=== PATIENT | female | born 1990 | race Caucasian/White ===

== ENCOUNTER 2018-10-06 16:43 | Emergency (ER) | payer SELFPAY ==
[~2018-10-06] VITALS: Ht 157.5 cm; Wt 63.5 kg
--- OUTSIDE RECORDS SUMMARY | 2018-10-06 16:52 | XMS REPORT | Clinical Summary ---
Author Author [facility] Organization [facility] Address Unknown Phone Unavailable Care Team Providers Care Heel Gummer Name Role Phone Asked, No Pcp PCP Unavailable Allergies Comments Active Allergy Reactions Severity Noted Date Penicillins Anaphylaxis High 02/18/2018 Medications End Date Status Medication Sig Dispensed Refills Start Date 02/28/2018 ciprofloxacin (CIPRO) 500 Take 1 tablet 20 tablet 0 MG tablet (500 mg 8 total) by mouth 2 (two) times a day for 10 days. 02/23/2018 acetaminophen-codeine Take 1 tablet 15 tablet 0 (TYLENOL WITH CODEINE #3) by mouth 8 300-30 mg per tablet every 6 (six) hours as needed for moderate pain for up to 5 days. 02/23/2018 promethazine (PHENERGAN) Take 1 tablet 20 tablet 0 25 MG tablet (25 mg total) 8 by mouth every 6 (six) hours as needed for nausea or vomiting for up to 5 days. Active Problems Not on file Encounters Care Team Description Date Type Specialty Tanvir Sharma MD Pyelonephritis (Primary Dx); Flank pain 02/18/2018 Emergency Emergency Medicine after 10/05/2017 Social History Date Tobacco Use Types Packs/Day Years Used Never Assessed Sex Assigned at Date Recorded Not on file Industry Job Start Date Occupation Not on file Not on file Not on file Travel End Travel History Travel Start No recent travel history available. Last Filed Vital Signs Time Taken Vital Sign Reading 02/18/2018 1:14 PM CDT Blood Pressure 101/58 02/18/2018 1:14 PM CDT Pulse 96 02/18/2018 9:47 AM CDT Temperature 36.9 C (98.4 F) 02/18/2018 1:14 PM CDT Respiratory Rate 18 02/18/2018 1:14 PM CDT Oxygen Saturation 99% - Inhaled Oxygen - Concentration 02/18/2018 6:44 AM CDT Weight 61.2 kg (135 lb) 02/18/2018 6:44 AM CDT Height 157.5 cm (5' 2") 02/18/2018 6:44 AM CDT Body Mass Index 24.69 Plan of Treatment Health Maintenance Due Date Last Done Comments CERVICAL CANCER SCREENING 2012 INFLUENZA VACCINE 01/29/2019 Procedures Comments Procedure Name Priority Date/Time Associated Diagnosis US GALLBLADDER STAT 02/18/2018 10:56 AM CDT LACTIC ACID LEVEL, SEPSIS Timed 02/18/2018 - NOW AND REPEAT 2X EVERY 10:04 AM CDT [address] ABDOMEN PELVIS W STAT 02/18/2018 CONTRAST 8:32 AM CDT LIPASE LEVEL STAT 02/18/2018 6:55 AM CDT ZZESTIMATED GFR STAT 02/18/2018 6:55 AM CDT COMPREHENSIVE METABOLIC STAT 02/18/2018 PANEL 6:55 AM CDT HC COMPLETE BLD COUNT STAT 02/18/2018 W/AUTO DIFF 6:55 AM CDT LACTIC ACID LEVEL, SEPSIS Timed 02/18/2018 - NOW AND REPEAT 2X EVERY 6:52 AM CDT 3 HOURS HCG QUALITATIVE, URINE STAT 02/18/2018 SCREEN 6:52 AM CDT URINALYSIS SCREEN AND STAT 02/18/2018 MICROSCOPY, WITH REFLEX 6:52 AM CDT TO CULTURE GRAM STAIN STAT 02/18/2018 6:52 AM CDT URINE CULTURE STAT 02/18/2018 6:52 AM CDT after 10/05/2017 Results * US Gallbladder (02/18/2018 10:56 AM CDT) Narrative Performed At EXAMINATION:US GALLBLADDER [facility] CLINICAL HISTORY:ruq pain TECHNIQUE: Sonographic imaging over the right upper quadrant with attention to gallbladder was performed. COMPARISON:None. IMPRESSION: 1.The gallbladder is normal. There are no gallstones. No pericholecystic fluid or sonographic Ibrahim's sign was elicited. 2.The common bile duct is normal in caliber and measures 2.8 mm. 3.The main portal vein is patent with a diameter of 0.9 cm. There is normal hepatopedal directional flow within the main portal vein. SUMMARY: Normal gallbladder ultrasound. [facility]-[id number] Procedure Note Interface, Radiology Results Incoming - 02/18/2018 11:01 AM CDT EXAMINATION: US GALLBLADDER CLINICAL HISTORY: ruq pain TECHNIQUE: Sonographic imaging over the right upper quadrant with attention to gallbladder was performed. COMPARISON: None. IMPRESSION: 1. The gallbladder is normal. There are no gallstones. No pericholecystic fluid or sonographic Ibrahim's sign was elicited. 2. The common bile duct is normal in caliber and measures 2.8 mm. 3. The main portal vein is patent with a diameter of 0.9 cm. There is normal hepatopedal directional flow within the main portal vein. SUMMARY: Normal gallbladder ultrasound. [facility]-[id number] Performing Organization Address City/State/Zipcode Phone Number [facility] [address] [place] [address] * Lactic acid level, SEPSIS - Now and repeat 2x every 3 hours (02/18/2018 10:04 AM CDT) Only the most recent of 2 results within the time period is included. Lactic acid 1.0 0.5 - 2.2 mmol/L [facility] AND GENOMIC MEDICINE Specimen Blood Performing Organization Address City/State/Zipcode Phone Number [facility] [address] [address] PATHOLOGY AND GENOMIC MEDICINE * CT Abdomen Pelvis W Contrast (02/18/2018 8:32 AM CDT) Narrative Performed At CT scan abdomen and pelvis. 02/18/2018 [facility] Clinical history: Abdominal infection Technique: Routine protocol CT abdomen and pelvis performed after 75 mL Omnipaque 300 intravenous contrast. No enteric contrast was administered.Coronal, sagittal and axial images generated from source data. Dose: 228.21 mGy-cm Comparison: None Findings: Clear lung bases. No pleural effusions. Normal heart size. Liver: Normal Gallbladder: Normal Pancreas: Normal Spleen: Normal Adrenal glands: Normal Kidneys: 2 mm right inferior pole stone. Mild bilateral urothelial enhancement without hydronephrosis. Otherwise, normal. Urinary bladder: Normal Uterus and adnexa: Normal. Retroverted uterus. Bowel: Normal caliber. Normal appendix. Peritoneum: Normal Vasculature: Normal. Mildly prominent ovarian veins which are patent. Lymph nodes: Normal Skeleton: Intact. Soft tissues: Normal Impression: 1.Urothelial enhancement concerning for ascending urinary tract infection. No definitive evidence of pyelonephritis. 2.2 mm right inferior pole nonobstructive stone. Procedure Note Interface, Radiology Results Incoming - 02/18/2018 8:[address] scan abdomen and pelvis. 02/18/2018 Clinical history: Abdominal infection Technique: Routine protocol CT abdomen and pelvis performed after 75 mL Omnipaque 300 intravenous contrast. No enteric contrast was administered. Coronal, sagittal and axial images generated from source data. Dose: 228.21 mGy-cm Comparison: None Findings: Clear lung bases. No pleural effusions. Normal heart size. Liver: Normal Gallbladder: Normal Pancreas: Normal Spleen: Normal Adrenal glands: Normal Kidneys: 2 mm right inferior pole stone. Mild bilateral urothelial enhancement without hydronephrosis. Otherwise, normal. Urinary bladder: Normal Uterus and adnexa: Normal. Retroverted uterus. Bowel: Normal caliber. Normal appendix. Peritoneum: Normal Vasculature: Normal. Mildly prominent ovarian veins which are patent. Lymph nodes: Normal Skeleton: Intact. Soft tissues: Normal Impression: 1. Urothelial enhancement concerning for ascending urinary tract infection. No definitive evidence of pyelonephritis. 2. 2 mm right inferior pole nonobstructive stone. Performing Organization Address City/State/Zipcode Phone Number [facility] [address] [place] [address] * Estimated GFR (02/18/2018 6:55 AM CDT) GFR Non Af Amer >90 mL/min/1.73 m2 [facility]Y AND GENOMIC MEDICINE GFR Af Amer >90 mL/min/1.73 m2 [facility] OF Comment: PATHOLOGY AND Chronic kidney disease: <60 GENOMIC MEDICINE mL/min/1.73m2 Kidney failure: <15 mL/min/1.73m2 The estimated GFR is calculated from the IDMS-traceable Modification of Diet in Renal Disease Equation. The accuracy of the calculation is poor when the creatinine is normal. Calculated values >90 mL/min/1.73m2 are not reported. This equation has not been validated in children (<18 years), women, the elderly (>70 years), or ethnic groups other than Caucasians and Americans. Specimen Plasma specimen Performing Organization Address City/State/Zipcode Phone Number [facility] [address] [place] [address] PATHOLOGY AND GENOMIC MEDICINE * CBC with platelet and differential (02/18/2018 6:55 AM CDT) WBC 13.5 (H) 4.2 - 11.0 k/uL [facility] OF PATHOLOGY AND GENOMIC MEDICINE RBC 4.39 4.04 - 5.86 m/uL [facility] OF PATHOLOGY AND GENOMIC MEDICINE HGB 13.1 11.5 - 15.3 g/dL [facility] OF PATHOLOGY AND GENOMIC MEDICINE HCT 39.0 34.0 - 45.0 % [facility] OF PATHOLOGY AND GENOMIC MEDICINE MCV 88.8 80.0 - 98.0 fL [facility] OF PATHOLOGY AND GENOMIC MEDICINE MCH 29.8 27.0 - 34.0 pg [facility] OF PATHOLOGY AND GENOMIC MEDICINE MCHC 33.6 31.5 - 36.5 g/dL [facility] OF PATHOLOGY AND GENOMIC MEDICINE RDW - SD 40.1 37.0 - 51.0 fL [facility] OF PATHOLOGY AND GENOMIC MEDICINE MPV 9.3 7.4 - 10.4 fL [facility] OF PATHOLOGY AND GENOMIC MEDICINE Platelet count 246 150 - 400 k/uL [facility] OF PATHOLOGY AND GENOMIC MEDICINE Nucleated RBC 0.00 /100 WBC [facility] OF PATHOLOGY AND GENOMIC MEDICINE Neutrophils 84.7 (H) 36.0 - 66.0 % [facility] OF PATHOLOGY AND GENOMIC MEDICINE Lymphocytes 7.2 (L) 24.0 - 44.0 % [facility] OF PATHOLOGY AND GENOMIC MEDICINE Monocytes 7.4 (H) 0.0 - 6.0 % [facility] OF PATHOLOGY AND GENOMIC MEDICINE Eosinophils 0.0 0.0 - 6.0 % [facility] OF PATHOLOGY AND GENOMIC MEDICINE Basophils 0.2 0.0 - 1.2 % [facility] OF PATHOLOGY AND GENOMIC MEDICINE Immature granulocytes 0.5 0.0 - 1.0 % [facility] OF PATHOLOGY AND GENOMIC MEDICINE Specimen Blood Performing Organization Address City/State/Zipcode Phone Number [facility] [address] [place] [address] PATHOLOGY AND GENOMIC MEDICINE * Lipase level (02/18/2018 6:55 AM CDT) Lipase 32 13 - 60 U/L [facility] OF PATHOLOGY AND GENOMIC MEDICINE Specimen Plasma specimen Performing Organization Address City/State/Zipcode Phone Number [place] [address] [place] [address] PATHOLOGY AND GENOMIC MEDICINE * Comprehensive metabolic panel (02/18/2018 6:55 AM CDT) Sodium 139 135 - 150 mEq/L [facility] OF PATHOLOGY AND GENOMIC MEDICINE Potassium 3.5 3.5 - 5.0 mEq/L [facility] OF PATHOLOGY AND GENOMIC MEDICINE Chloride 100 98 - 112 mEq/L [facility] OF PATHOLOGY AND GENOMIC MEDICINE CO2 20 (L) 24 - 31 mmol/L [facility] OF PATHOLOGY AND GENOMIC MEDICINE Anion gap 19@ANIO (H) 7 - 15 mEq/L [facility] OF PATHOLOGY AND GENOMIC MEDICINE BUN 7 7 - 18 mg/dL [facility] OF PATHOLOGY AND GENOMIC MEDICINE Creatinine 0.70 0.50 - 0.90 mg/dL [facility] OF PATHOLOGY AND GENOMIC MEDICINE Glucose 130 (H) 65 - 100 mg/dL [facility] OF PATHOLOGY AND GENOMIC MEDICINE Calcium 9.5 8.3 - 10.2 mg/dL [facility] OF PATHOLOGY AND GENOMIC MEDICINE Protein 8.2 6.3 - 8.3 g/dL [facility] OF PATHOLOGY AND GENOMIC MEDICINE Albumin 4.1 3.5 - 5.0 g/dL [facility] OF PATHOLOGY AND GENOMIC MEDICINE A/G ratio 1.0 0.7 - 3.8 [facility] OF PATHOLOGY AND GENOMIC MEDICINE Alkaline phosphatase 81 0 - 104 U/L [facility] OF PATHOLOGY AND GENOMIC MEDICINE AST 18 10 - 35 U/L [facility] OF PATHOLOGY AND GENOMIC MEDICINE ALT 11 5 - 50 U/L [facility] OF PATHOLOGY AND GENOMIC MEDICINE Total bilirubin 0.5 0.2 - 1.2 mg/dL [facility] OF PATHOLOGY AND GENOMIC MEDICINE Specimen Plasma specimen Performing Organization Address City/State/Zipcode Phone Number [facility] [address] [place] [address] PATHOLOGY AND GENOMIC MEDICINE * Urinalysis screen and microscopy, with reflex to culture (02/18/2018 6:52 AM CDT) Specimen site Clean catch [facility] OF PATHOLOGY AND GENOMIC MEDICINE Color, UA Bella [facility] OF PATHOLOGY AND GENOMIC MEDICINE Appearance, UA Slightly-Cloudy [facility] OF PATHOLOGY AND GENOMIC MEDICINE Specific gravity, UA 1.014 1.001 - 1.035 [facility] OF PATHOLOGY AND GENOMIC MEDICINE pH, UA 8.0 5.0 - 8.5 [facility] OF PATHOLOGY AND GENOMIC MEDICINE Protein, UA 2+ (A) Negative [facility] OF PATHOLOGY AND GENOMIC MEDICINE Glucose, UA Negative Negative [facility] OF PATHOLOGY AND GENOMIC MEDICINE Ketones, UA 1+ (A) Negative [facility] OF PATHOLOGY AND GENOMIC MEDICINE Bilirubin, UA Negative Negative [facility] OF PATHOLOGY AND GENOMIC MEDICINE Blood, UA Small (A) Negative [facility] OF PATHOLOGY AND GENOMIC MEDICINE Nitrite, UA Positive (A) Negative [facility] OF PATHOLOGY AND GENOMIC MEDICINE Urobilinogen, UA 2.0 (A) <2.0 [facility] OF PATHOLOGY AND GENOMIC MEDICINE Leukocyte esterase, UA Moderate (A) Negative [facility] OF PATHOLOGY AND GENOMIC MEDICINE Epithelial cells, UA Many /HPF [facility] OF PATHOLOGY AND GENOMIC MEDICINE WBC, UA >200 (H) 0 - 5 /HPF [facility] OF PATHOLOGY AND GENOMIC MEDICINE RBC, UA 22 (H) 0 - 5 /HPF [facility] OF PATHOLOGY AND GENOMIC MEDICINE Bacteria, UA Moderate (A) None seen [facility] OF PATHOLOGY AND GENOMIC MEDICINE Yeast, UA None seen [facility] OF PATHOLOGY AND GENOMIC MEDICINE Yeast with pseudohyphae, None seen [facility] OF PATHOLOGY AND GENOMIC MEDICINE Specimen Urine Performing Organization Address City/State/Rust[place] Phone Number [facility] [address] [place] [address] PATHOLOGY AND GENOMIC MEDICINE * hCG qualitative, urine screen (02/18/2018 6:52 AM CDT) hCG qualitative, urine Negative Negative [facility] OF Comment: PATHOLOGY AND The manufacturers stated GENOMIC MEDICINE sensitivity of HcG test for serum is >/=10 mIU/ml and urine is >/=20mIU/ml. Specimen Urine Performing Organization Address City/[facility]/Zipcode Phone Number [facility] [address] [place] [address] PATHOLOGY AND GENOMIC MEDICINE * Gram stain (02/18/2018 6:52 AM CDT) Gram stain result Moderate WBC's [facility] DEPARTMENT OF Occasional Gram positive rods PATHOLOGY AND Moderate Gram negative rods GENOMIC MEDICINE Comment: Specimen Information Specimen Source: Urine Specimen Site: Clean catch Specimen Urine Performing Organization Address [facility]/[employer] Phone Number [facility] DEPARTMENT OF [address] [place] [address] PATHOLOGY AND GENOMIC MEDICINE * Urine culture (02/18/2018 6:52 AM CDT) Urine culture isolate Escherichia coli [facility] DEPARTMENT OF >10-5 cfu/ml PATHOLOGY AND (A) GENOMIC MEDICINE Comment: Specimen Information Specimen Source: Urine Specimen Site: Clean catch Urine culture isolate Mixed Gram positive karthikeyan [facility] DEPARTMENT OF 10-5 cfu/ml PATHOLOGY AND (A) GENOMIC MEDICINE Specimen Urine Antibiotic Method Susceptibility Organism Ampicillin CATA <=2 mcg/mL: Susceptible Escherichia coli Amoxicillin/Clavulanate CATA 4/2 mcg/mL: Susceptible Escherichia coli Amikacin CATA <=4 mcg/mL: Susceptible Escherichia coli Aztreonam CATA <=1 mcg/mL: Susceptible Escherichia coli Ceftazidime CATA <=0.5 mcg/mL: Susceptible Escherichia coli Ciprofloxacin CATA <=0.5 mcg/mL: Susceptible Escherichia coli Ceftriaxone CATA <=0.5 mcg/mL: Susceptible Escherichia coli Cefuroxime Sodium CATA <=4 mcg/mL: Susceptible Escherichia coli Cefazolin CATA <=1 mcg/mL: Susceptible Escherichia coli Cefepime CATA <=0.5 mcg/mL: Susceptible Escherichia coli Nitrofurantoin CATA <=16 mcg/mL: Susceptible Escherichia coli Cefoxitin CATA <=4 mcg/mL: Susceptible Escherichia coli Gentamicin CATA <=1 mcg/mL: Susceptible Escherichia coli Imipenem CATA <=0.25 mcg/mL: Susceptible Escherichia coli Levofloxacin CATA <=1 mcg/mL: Susceptible Escherichia coli Meropenem CATA <=0.125 mcg/mL: Susceptible Escherichia coli Tobramycin CATA 1 mcg/mL: Susceptible Escherichia coli Ampicillin/Sulbactam CATA 2/1 mcg/mL: Susceptible Escherichia coli Trimethoprim/Sulfamethoxazole CATA <=0.5/9.5 mcg/mL: Susceptible Escherichia coli Tetracycline CATA <=1 mcg/mL: Susceptible Escherichia coli Piperacillin/Tazobactam CATA <=2/4 mcg/mL: Susceptible Escherichia coli Ertapenem CATA <=0.125 mcg/mL: Susceptible Escherichia coli Tigecycline CATA <=0.5 mcg/mL: Susceptible Escherichia coli Performing Organization Address City/[facility]/[employer] Phone Number [facility] DEPARTMENT OF [address] [place] [address] PATHOLOGY AND GENOMIC MEDICINE after 10/05/2017 Advance Directives Patient has advance care planning documents on file. For more information, pierre fuentes contact: Stuart Mitchell [address] [place] [address]
[2018-10-06] MEDS ORDERED: HYDROCODONE/APAP 10MG-325MG TAB PO ONE (17:00)
[2018-10-06] MEDS ORDERED: ONDANSETRON HCL INJ 2MG/ML 2ML 2 MG/ML VIAL IV ONE (18:15)
[2018-10-06] MEDS ORDERED: PROMETHAZINE 12.5MG/ NACL 0.9% 12.5 MG/50 ML BAG IV ONE (19:00)
[2018-10-06] MEDS ORDERED: MAGNESIUM/ALUMINUM/SIMETHICONE 30 ML UDC PO ONE (19:00)
--- NOTE | 2018-10-06 19:23 | Diagnostic Imaging Report ---
Exam: Left knee 3 views History: Pain Comparison: None. Findings: Transverse fracture of the patella with distraction measuring approximately 4 cm. Small joint effusion. Joint spaces maintained. Impression: Transverse fracture of the patella with distraction measuring approximately 4 cm. Signed by: Dr. Christian Burns M.D. on 10/06/2018 7:19 PM
[2018-10-06 20:24] VITALS: BP 104/58
== END 2018-10-06 20:50 | disposition home or self-care (01) ==
LOC: ER 16:50
DX: S82.032A Displaced transverse fracture of left patella, initial encounter for closed fracture (principal); W01.0XXA Fall on same level from slipping, tripping and stumbling without subsequent striking against object, initial encounter; Y92.512 Supermarket, store or market as the place of occurrence of the external cause
CPT/HCPCS: 29530; 73562; 99284; J2405; J2550